=== PATIENT | female | born 1995 | race Caucasian/White ===

== ENCOUNTER 2018-09-04 22:21 | Emergency (ER) | payer BC ==
--- NOTE | 2018-09-04 22:48 | EDM.PDOC ---
ED HPI GENERAL MEDICAL PROBLEM - General Chief Complaint: ENT Problem Stated Complaint: ABCESS Time Seen by Provider: 09/04/18 22:44 - History of Present Illness INITIAL COMMENTS - FREE TEXT/NARRATIVE: HISTORY AND PHYSICAL: History of present illness: Patient's a 22-year-old female who is currently and presents with a concern of dentalgia secondary to dental abscess she has pain and swelling the region of her left upper molar. Review of systems: As per history of present illness and below otherwise all systems reviewed and negative. Past medical history: As per history of present illness and as reviewed below otherwise noncontributory. Surgical history: As per history of present illness and as reviewed below otherwise noncontributory. Social history: No reported history of drug or alcohol abuse. Family history: As per history of present illness and as reviewed below otherwise noncontributory. Physical exam: HEENT: Atraumatic, normocephalic, pupils reactive, negative for conjunctival pallor or scleral icterus, mucous membranes moist, throat clear, neck supple, nontender, trachea midline. Generally poor dentition gingival edema in the left upper molar region. Lungs: Clear to auscultation, breath sounds equal bilaterally, chest nontender. Heart: S1S2, regular, negative for clicks, rubs, or JVD. Abdomen: Soft, nondistended, nontender. Negative for masses or hepatosplenomegaly. Negative for costovertebral tenderness. Pelvis: Stable nontender. Genitourinary: Deferred. Rectal: Deferred. Extremities: Atraumatic, negative for cords or calf pain. Neurovascular unremarkable. Neuro: Awake, alert, oriented. Cranial nerves II through XII unremarkable. Cerebellum unremarkable. Motor and sensory unremarkable throughout. Exam nonfocal. Diagnostics: None Therapeutics: Dental balls Impression: Were 1 dentalgia #2 dental abscess #3 history of Definitive disposition and diagnosis as appropriate pending reevaluation and review of above. dental area Pain Score (Numeric/FACES): 5 - Related Data Allergies Allergy/AdvReac Type Severity Reaction Status Date / Time No Known Allergies Allergy Verified 09/04/18 22:32 Home Meds: Home Meds . [No Known Home Meds] 09/04/18 [History] Past Medical History HEENT History: Reports: None Cardiovascular History: Reports: None Respiratory History: Reports: None Gastrointestinal History: Reports: None Genitourinary History: Reports: None Musculoskeletal History: Reports: None Neurological History: Reports: None Psychiatric History: Reports: None Endocrine/Metabolic History: Reports: None Hematologic History: Reports: None Immunologic History: Reports: None Oncologic (Cancer) History: Reports: None Dermatologic History: Reports: None - Infectious Disease History Infectious Disease History: Reports: None - Past Surgical History Head Surgeries/Procedures: Reports: None Musculoskeletal Surgical History: Reports: None Social & Family History - Family History Family Medical History: Noncontributory - Tobacco Use Smoking Status *Q: Current Every Day Smoker Years of Tobacco use: 9 Packs/Tins Daily: 0.5 - Caffeine Use Caffeine Use: Reports: Soda - Recreational Drug Use Recreational Drug Use: No ED ROS GENERAL - Review of Systems Review Of Systems: ROS reveals no pertinent complaints other than HPI. ED EXAM, GENERAL - Physical Exam Exam: See Below (See dictation) Course - Vital Signs Last Recorded V/S: Last Vital Signs Temp 36.5 C 09/04/18 22:32 Pulse 89 09/04/18 22:32 Resp 18 09/04/18 22:32 BP 112/64 09/04/18 22:32 Pulse Ox 98 09/04/18 22:32 Departure - Departure Time of Disposition: 22:46 Disposition: Home, Self-Care 01 Condition: Good Clinical Impression: Dental abscess, Dentalgia - Discharge Information Referrals: PCP,None [Primary Care Provider] - Additional Instructions: The following information is given to patients seen in the emergency department who are being discharged to home. This information is to outline your options for follow-up care. We provide all patients seen in our emergency department with a follow-up referral. The need for follow-up, as well as the timing and circumstances, are variable depending upon the specifics of your emergency department visit. If you don't have a primary care physician on staff, we will provide you with a referral. We always advise you to contact your personal physician following an emergency department visit to inform them of the circumstance of the visit and for follow-up with them and/or the need for any referrals to a consulting specialist. The emergency department will also refer you to a specialist when appropriate. This referral assures that you have the opportunity for followup care with a specialist. All of these measure are taken in an effort to provide you with optimal care, which includes your followup. Under all circumstances we always encourage you to contact your private physician who remains a resource for coordinating your care. When calling for followup care, please make the office aware that this follow-up is from your recent emergency room visit. If for any reason you are refused follow-up, please contact the [facility] emergency department at and asked to speak to the emergency department charge nurse. Keflex as prescribed Tylenol as directed follow-up dentist as discussed return as needed as discussed
== END 2018-09-04 23:05 | disposition home or self-care (01) ==
LOC: MW.ED 22:21
DX: O99.619 Diseases of the digestive system complicating pregnancy, unspecified trimester (principal); K04.7 Periapical abscess without sinus; O99.330 Smoking (tobacco) complicating pregnancy, unspecified trimester; F17.210 Nicotine dependence, cigarettes, uncomplicated; Z3A.00 Weeks of gestation of pregnancy not specified
CPT/HCPCS: 99282; 99283

== ENCOUNTER 2019-01-11 13:24 | Inpatient (IN) | payer SELFPAY ==
[2019-01-11] MEDS ORDERED: Water For Irrigation,Sterile 1,000 ML Container IRR PRN (19:11)
[2019-01-11] MEDS ORDERED: Ondansetron 4 MG/2 ML SDV IVPUSH PRN (19:11)
[2019-01-11] MEDS ORDERED: Sodium Chloride 0.9% 2.5 ML Syringe FLUSH PRN (19:11)
[2019-01-11] MEDS ORDERED: Tranexamic Acid 1,000 MG in Sodium Chloride 0.9% 100 ML IV PRN (19:11)
[2019-01-11] MEDS ORDERED: Carboprost Tromethamine 250 MCG/1 ML Amp IM PRN (19:11)
[2019-01-11] MEDS ORDERED: Lidocaine 1% 50 ML MDV INJECT PRN (19:11)
[2019-01-11] MEDS ORDERED: Sodium Chloride 0.9% 10 ML SDV IV PRN (19:11)
[2019-01-11] MEDS ORDERED: Butorphanol 1 MG/ML SDV IVPUSH PRN (19:11)
[2019-01-11] MEDS ORDERED: Nalbuphine 10 MG/1 ML Vial IVPUSH PRN (19:11)
[2019-01-11] MEDS ORDERED: Sodium Chloride 0.9% 10 ML Syringe FLUSH PRN (19:11)
[2019-01-11] MEDS ORDERED: Methylergonovine 0.2 MG/1 ML Amp IM PRN (19:11)
[2019-01-11] MEDS ORDERED: Terbutaline 1 MG/ML SDV SUBCUT PRN (19:11)
[2019-01-11] MEDS ORDERED: Misoprostol 200 MCG Tab PO PRN (19:11)
[2019-01-11] MEDS ORDERED: Oxytocin/0.9 % Sodium Chloride 30 UNIT/500 ML BAG IV SCH ×2 (19:15)
[2019-01-11] MEDS: Lactated Ringers 1,000 ML IV SCH (21:00)
--- NOTE | 2019-01-11 21:53 | PCM.LDHP ---
L&D History of Present Illness - General Date of Service: 01/11/19 Admit Problem/Dx: Patient Status Order with Admit Dx/Problem 01/11/19 19:11 Patient Status [ADT] Routine Admission Diagnosis/Problem Admission Diagnosis/Problem 01/11/19 21:46 23yo EDC 01/18/2019 39 0/7wks IOL Term. A+, RI, GBS neg, Hep C pos. Source of Information: Patient History Limitations: Reports: No Limitations - History of Present Illness Improves with: Reports: None Worsens with: Reports: None Associated Symptoms: Reports: N - Related Data Allergies/Adverse Reactions: Allergies Allergy/AdvReac Type Severity Reaction Status Date / Time No Known Allergies Allergy Verified 09/04/18 22:32 Home Medications: Home Meds Pnv No.103/Folic/Om3s/Fish Oil [ Gummies] 1 tab PO DAILY 01/05/19 [ History] Past Medical History HEENT History: Reports: None Cardiovascular History: Reports: None Respiratory History: Reports: None Gastrointestinal History: Reports: None Genitourinary History: Reports: None 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: Musculoskeletal History: Reports: None Neurological History: Reports: None Psychiatric History: Reports: None Endocrine/Metabolic History: Reports: None Hematologic History: Reports: None Immunologic History: Reports: None Oncologic (Cancer) History: Reports: None Dermatologic History: Reports: None - Infectious Disease History Infectious Disease History: Reports: Hepatitis C - Past Surgical History Head Surgeries/Procedures: Reports: None Musculoskeletal Surgical History: Reports: None Social & Family History - Family History Family Medical History: Noncontributory - Caffeine Use Caffeine Use: Reports: Soda H&P Review of Systems - Review of Systems: Review Of Systems: See Below General: Reports: No Symptoms HEENT: Reports: No Symptoms Pulmonary: Reports: No Symptoms Cardiovascular: Reports: No Symptoms Gastrointestinal: Reports: No Symptoms Genitourinary: Reports: No Symptoms Musculoskeletal: Reports: No Symptoms Skin: Reports: No Symptoms Psychiatric: Reports: No Symptoms Neurological: Reports: No Symptoms Hematologic/Lymphatic: Reports: No Symptoms Immunologic: Reports: No Symptoms L&D Exam - Exam Exam: See Below - Vital Signs Weight: 66.224 kg - OB Specific Contraction Intensity: Mild to Moderate Movement: Active Heart Tones: Present Heart Rate (FHR) Variability: Moderate (6-25 bmp) Presentation: Vertex - Fraga Score Fraga Score Cervix Position: Midposition Fraga Score Consistency: Soft Fraga Score Effacement: 51-70% Fraga Score Dilation: 3-4 cm Fraga Score Infant's Station: -2 Fraga Score Total: 8 - Exam General: Alert, Oriented, Cooperative HEENT: Hearing Intact Lungs: Clear to Auscultation, Normal Respiratory Effort Cardiovascular: Regular Rate, Regular Rhythm, Normal S1, Normal S2 GI/Abdominal Exam: Soft, Non-Tender, Pelvis Stable Rectal Exam: Deferred Genitourinary: Normal external exam, Normal bimanual exam, Cervical dilitation. No: Cervical fluid, Vaginal bleeding Back Exam: Normal Inspection, Full Range of Motion Extremities: Normal Inspection, Normal Range of Motion, Non-Tender, No Pedal Edema Skin: Warm, Dry, Intact Neurological: Cranial Nerves Intact, Strength Equal Bilateral, Normal Gait, Normal Speech, Normal Tone Psychiatric: Alert, Normal Affect, Normal Mood - Patient Data Lab Results Last 24 hrs: Laboratory Results - last 24 hr 01/11/19 01/11/19 Range/Units 19:34 19:34 WBC 8.79 (4.0-11.0) K/uL RBC 3.81 L (4.30-5.90) M/uL Hgb 9.9 L (12.0-16.0) g/dL Hct 30.4 L (36.0-46.0) % MCV 79.8 L (80.0-98.0) fL MCH 26.0 L (27.0-32.0) pg MCHC 32.6 (31.0-37.0) g/dL RDW Std Deviation 42.6 (28.0-62.0) fl RDW Coeff of Garland 15 (11.0-15.0) % Plt Count 159 (150-400) K/uL MPV 9.40 (7.40-12.00) fL Nucleated RBC % 0.0 /100WBC Nucleated RBCs # 0 K/uL Blood Type A POSITIVE Antibody Screen NEGATIVE Result Diagrams: 01/11/19 19:34 - Problem List (1) Supervision of normal IUP (intrauterine ) in multigravida SNOMED Code(s): 735777053, 128942778, 834379223 ICD Code: Z34.80 - ENCOUNTER FOR SUPRVSN OF NORMAL , UNSP TRIMESTER Status: Acute Priority: High Current Visit: Yes Qualifiers: Trimester: third trimester Qualified Code(s): Z34.83 - Encounter for supervision of other normal , third trimester (2) Hepatitis C infection SNOMED Code(s): 53375886 ICD Code: B19.20 - UNSPECIFIED VIRAL HEPATITIS C WITHOUT HEPATIC COMA Status: Acute Priority: High Current Visit: Yes Qualifiers: Viral hepatitis chronicity: chronic Problem List Initiated/Reviewed/Updated: Yes Orders Last 24hrs: Active Orders 24 hr Category Date Time Status Patient Status [ADT] Routine ADT 01/11/19 19:11 Active Communication Order [RC] ASDIRECTED Care 01/11/19 19:11 Active Communication Order [RC] ASDIRECTED Care 01/11/19 19:11 Active May Shower [RC] ASDIRECTED Care 01/11/19 19:11 Active Notify Provider [RC] PRN Care 01/11/19 19:11 Active Notify Provider [RC] PRN Care 01/11/19 19:11 Active Notify Provider [RC] STAT Care 01/11/19 19:11 Active Oxygen Therapy [RC] ASDIRECTED Care 01/11/19 19:11 Active Up ad Alise [RC] ASDIRECTED Care 01/11/19 19:11 Active Vital Signs [RC] PER UNIT ROUTINE Care 01/11/19 19:11 Active Regular Diet [DIET] Diet 01/11/19 Breakfast Active RAPID PLASMA REAGIN, QUANT [REF] Routine Lab 01/11/19 19:34 Received Butorphanol [Stadol] Med 01/11/19 19:11 Active 1 mg IVPUSH Q1H PRN Carboprost Tromethamine [Hemabate DS] Med 01/11/19 19:11 Active 250 mcg IM ASDIRECTED PRN Lactated Ringers [Ringers, Lactated] 1,000 ml Med 01/11/19 19:15 Active IV ASDIRECTED Lidocaine 1% [Xylocaine 1%] Med 01/11/19 19:11 Active 50 ml INJECT ONETIME PRN Methylergonovine [Methergine] Med 01/11/19 19:11 Active 0.2 mg IM ASDIRECTED PRN Nalbuphine [Nubain] Med 01/11/19 19:11 Active 10 mg IVPUSH Q1H PRN Ondansetron [Zofran] Med 01/11/19 19:11 Active 4 mg IVPUSH Q4H PRN Oxytocin/0.9 % Sodium Chloride [Oxytocin 30 Unit/500 ML Med 01/11/19 19:15 Active -NS] 30 unit in 500 ml IV TITRATE Oxytocin/0.9 % Sodium Chloride [Oxytocin 30 Unit/500 ML Med 01/11/19 19:15 Active -NS] 30 unit in 500 ml IV TITRATE Sodium Chloride 0.9% [Normal Saline] Med 01/11/19 19:11 Active 10 ml IV ASDIRECTED PRN Sodium Chloride 0.9% [Saline Flush] Med 01/11/19 19:11 Active 10 ml FLUSH ASDIRECTED PRN Sodium Chloride 0.9% [Saline Flush] Med 01/11/19 19:11 Active 2.5 ml FLUSH ASDIRECTED PRN Terbutaline [Brethine] Med 01/11/19 19:11 Active 0.25 mg SUBCUT ASDIRECTED PRN Tranexamic Acid [Cyklokapron] 1,000 mg Med 01/11/19 19:11 Active Sodium Chloride 0.9% [Normal Saline] 100 ml IV ONETIME Water For Irrigation,Sterile [Sterile Water for Med 01/11/19 19:11 Active Irrigation] 1,000 ml IRR ASDIRECTED PRN miSOPROStoL [Cytotec] Med 01/11/19 19:11 Active 200 mcg PO ONETIME PRN Scalp Electrode [WOMSER] Per Unit Routine Oth 01/11/19 19:11 Ordered Medication Administration Instruction [OM.PC] Q3H Oth 01/11/19 19:15 Ordered Peripheral IV Insertion Adult [OM.PC] Routine Oth 01/11/19 19:11 Ordered Resuscitation Status Routine Resus Stat 01/11/19 19:11 Ordered Medication Orders Butorphanol Tartrate (Stadol) 1 mg IVPUSH Q1H PRN PRN Reason: Pain Carboprost Tromethamine (Hemabate Ds) 250 mcg IM ASDIRECTED PRN PRN Reason: Post Hemorrhage Lactated Ringer's (Ringers, Lactated) 1,000 mls @ 150 mls/hr IV ASDIRECTED RAYMOND Last Admin: 01/11/19 21:00 Dose: 150 mls/hr Oxytocin/Sodium Chloride (Oxytocin 30 Unit/500 Ml-Ns) 30 unit in 500 mls @ 500 mls/hr IV TITRATE RAYMOND Oxytocin/Sodium Chloride (Oxytocin 30 Unit/500 Ml-Ns) 30 unit in 500 mls @ 2 mls/hr IV TITRATE RAYMOND; Protocol Last Admin: 01/11/19 21:00 Dose: 2 munits/min, 2 mls/hr Tranexamic Acid 1,000 mg/ (Sodium Chloride) 110 mls @ 660 mls/hr IV ONETIME PRN PRN Reason: Bleeding Lidocaine HCl (Xylocaine 1%) 50 ml INJECT ONETIME PRN PRN Reason: Laceration repair Methylergonovine Maleate (Methergine) 0.2 mg IM ASDIRECTED PRN PRN Reason: Post Hemorrhage Misoprostol (Cytotec) 200 mcg PO ONETIME PRN PRN Reason: Post Hemorrhage Nalbuphine HCl (Nubain) 10 mg IVPUSH Q1H PRN PRN Reason: Pain (severe 7-10) Ondansetron HCl (Zofran) 4 mg IVPUSH Q4H PRN PRN Reason: Nausea/Vomiting Sodium Chloride (Saline Flush) 10 ml FLUSH ASDIRECTED PRN PRN Reason: Keep Vein Open Sodium Chloride (Saline Flush) 2.5 ml FLUSH ASDIRECTED PRN PRN Reason: Keep Vein Open Sodium Chloride (Normal Saline) 10 ml IV ASDIRECTED PRN PRN Reason: IV Use Sterile Water (Sterile Water For Irrigation) 1,000 ml IRR ASDIRECTED PRN PRN Reason: delivery Terbutaline Sulfate (Brethine) 0.25 mg SUBCUT ASDIRECTED PRN PRN Reason: Tacysystole Assessment/Plan Comment:: IOL A: 23yo EDC 01/18/2019 39 0/7wks IOL Term. A+, RI, GBS neg, Hep C pos. P: Admit, epidural prn, anticipate , Dr Aleman updated.
[2019-01-12] MEDS: Lactated Ringers 1,000 ML IV SCH ×2 (04:53→07:45)
[2019-01-12] MEDS ORDERED: fentaNYL 100 MCG/2 ML SDV ONE (06:22)
[2019-01-12] MEDS ORDERED: Ropivacaine HCl/PF 100 ML ONE (06:22)
--- NOTE | 2019-01-12 06:47 | PCM.PREANE ---
Preanesthetic Assessment - Anesthesia/Transfusion/Family Hx Anesthesia History: Prior Anesthesia Without Reaction Family History of Anesthesia Reaction: No Transfusion History: No Prior Transfusion(s) - Review of Systems General: No Symptoms Pulmonary: No Symptoms Cardiovascular: No Symptoms Gastrointestinal: No Symptoms Neurological: No Symptoms Other: Reports: None - Physical Assessment NPO Status Date: 01/12/19 NPO Status Time: 00:05 Height: 1.6 m Weight: 66.224 kg ASA Class: 1 - Lab Values: Laboratory Last Values WBC 8.79 K/uL (4.0-11.0) 01/11/19 19:34 RBC 3.81 M/uL (4.30-5.90) L 01/11/19 19:34 Hgb 9.9 g/dL (12.0-16.0) L 01/11/19 19:34 Hct 30.4 % (36.0-46.0) L 01/11/19 19:34 MCV 79.8 fL (80.0-98.0) L 01/11/19 19:34 MCH 26.0 pg (27.0-32.0) L 01/11/19 19:34 MCHC 32.6 g/dL (31.0-37.0) 01/11/19 19:34 RDW Std Deviation 42.6 fl (28.0-62.0) 01/11/19 19:34 RDW Coeff of Garland 15 % (11.0-15.0) 01/11/19 19:34 Plt Count 159 K/uL (150-400) 01/11/19 19:34 MPV 9.40 fL (7.40-12.00) 01/11/19 19:34 Nucleated RBC % 0.0 /100WBC 01/11/19 19:34 Nucleated RBCs # 0 K/uL 01/11/19 19:34 Blood Type A POSITIVE 01/11/19 19:34 Antibody Screen NEGATIVE 01/11/19 19:34 - Allergies Allergies/Adverse Reactions: Allergies Allergy/AdvReac Type Severity Reaction Status Date / Time No Known Allergies Allergy Verified 09/04/18 22:32 - Acknowledgements Anesthesia Type Planned: Epidural, Regional Block Pt an Appropriate Candidate for the Planned Anesthesia: Yes Alternatives and Risks of Anesthesia Discussed w Pt/Guardian: Yes Pt/Guardian Understands and Agrees with Anesthesia Plan: Yes PreAnesthesia Questionnaire HEENT History: Reports: None Cardiovascular History: Reports: None Respiratory History: Reports: None Gastrointestinal History: Reports: None Genitourinary History: Reports: None 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: Musculoskeletal History: Reports: None Neurological History: Reports: None Psychiatric History: Reports: None Endocrine/Metabolic History: Reports: None Hematologic History: Reports: None Immunologic History: Reports: None Oncologic (Cancer) History: Reports: None Dermatologic History: Reports: None - Infectious Disease History Infectious Disease History: Reports: Hepatitis C - Past Surgical History Head Surgeries/Procedures: Reports: None Musculoskeletal Surgical History: Reports: None - SUBSTANCE USE Smoking Status *Q: Current Every Day Smoker Tobacco Use Within Last Twelve Months: Cigarettes Second Hand Smoke Exposure: Yes Recreational Drug Use History: Yes - HOME MEDS Home Medications: Home Meds Pnv No.103/Folic/Om3s/Fish Oil [ Gummies] 1 tab PO DAILY 01/05/19 [ History] - CURRENT (IN HOUSE) MEDS Current Meds: Current Medications Butorphanol Tartrate (Stadol) 1 mg IVPUSH Q1H PRN PRN Reason: Pain Carboprost Tromethamine (Hemabate Ds) 250 mcg IM ASDIRECTED PRN PRN Reason: Post Hemorrhage Lactated Ringer's (Ringers, Lactated) 1,000 mls @ 150 mls/hr IV ASDIRECTED RAYMOND Last Admin: 01/12/19 04:53 Dose: 150 mls/hr Oxytocin/Sodium Chloride (Oxytocin 30 Unit/500 Ml-Ns) 30 unit in 500 mls @ 500 mls/hr IV TITRATE RAYMOND Oxytocin/Sodium Chloride (Oxytocin 30 Unit/500 Ml-Ns) 30 unit in 500 mls @ 2 mls/hr IV TITRATE RAYMOND; Protocol Last Titration: 01/11/19 23:00 Dose: 10 munits/min, 10 mls/hr Tranexamic Acid 1,000 mg/ (Sodium Chloride) 110 mls @ 660 mls/hr IV ONETIME PRN PRN Reason: Bleeding Lidocaine HCl (Xylocaine 1%) 50 ml INJECT ONETIME PRN PRN Reason: Laceration repair Methylergonovine Maleate (Methergine) 0.2 mg IM ASDIRECTED PRN PRN Reason: Post Hemorrhage Misoprostol (Cytotec) 200 mcg PO ONETIME PRN PRN Reason: Post Hemorrhage Nalbuphine HCl (Nubain) 10 mg IVPUSH Q1H PRN PRN Reason: Pain (severe 7-10) Ondansetron HCl (Zofran) 4 mg IVPUSH Q4H PRN PRN Reason: Nausea/Vomiting Sodium Chloride (Saline Flush) 10 ml FLUSH ASDIRECTED PRN PRN Reason: Keep Vein Open Sodium Chloride (Saline Flush) 2.5 ml FLUSH ASDIRECTED PRN PRN Reason: Keep Vein Open Sodium Chloride (Normal Saline) 10 ml IV ASDIRECTED PRN PRN Reason: IV Use Sterile Water (Sterile Water For Irrigation) 1,000 ml IRR ASDIRECTED PRN PRN Reason: delivery Terbutaline Sulfate (Brethine) 0.25 mg SUBCUT ASDIRECTED PRN PRN Reason: Tacysystole Discontinued Medications Fentanyl (Sublimaze) Confirm Administered Dose 100 mcg .ROUTE .STK-MED ONE Stop: 01/12/19 06:23 Ropivacaine (Naropin 0.2%) Confirm Administered Dose 100 mls @ as directed .ROUTE .STK-MED ONE Stop: 01/12/19 06:23
--- NOTE | 2019-01-12 06:50 | PCM.PRNOTE ---
- Free Text/Narrative Note: Anes Note Patient requests epidural for L&D. Sitting position, level L2-L3 midline approach. Sterile technique. Chloraprep scrub to lumbar area. Sterile fenestrated drape applied. Epidural space easily achived single attempt with ease using ROGELIO technique. ROGELIO at 3 cm. Cath threaded 5 cm with ease. Secured at skin at 9 cm. Cath secured with sterile clear adhesive dressing. 0635 test 3 cc 1.5% lido with epi negative 0638 Load 10 cc 0.2% ropivicaine with 1 mcg cc fentanyl given in slow divided doses. 0643 Pump started with 90 cc same solution. Rate is 8 cc hr, 6 cc q 20 min prn bolus. Matilde well. Time with patient [id number] Nik Fuentes CRNA
--- NOTE | 2019-01-12 13:41 | PCM.DEL ---
L & D Note - General Info Date of Service: 01/12/19 Mother's Due Date: 01/18/19 - Delivery Note Labor: Induced by Oxytocin Delivery Outcome: Livebirth Infant Delivery Method: Spontaneous Vaginal Delivery-Single Delivery Mode: Spontaneous Presentation: Vertex Nuchal Cord: Present Anesthesia Type: Epidural Amniotic Fluid Description: Clear Episiotomy Type: None Laceration: None Placenta: Intact, Spontaneous Cord: 3 Vessels Estimated Blood Loss: 100 Resuscitation Needed: No Platinum: Stimulated Score 1 min: 8 Score 5 min: 9 Second Stage Interventions: Reports: Pushing, Pulls Own Legs Back Induction Criteria - Fraga Score Fraga Score Dilation: 3-4 cm Fraga Score Effacement: 60-70% Fraga Score 's Station: -2 Fraga Score Consistency: Medium Fraga Score Cervix Position: Midposition Fraga Score Total: 7 Fraga Score Presenting Part: Reports: Cephalic - Induction Gestational Age >/= 39 wks: Yes Estimated Pelvis: Reports: Adequate Reassuring Monitoring Strip: Yes Absence of Tachy Systole: Yes - General Info Date of Service: 01/12/19 Functional Status: Reports: Pain Controlled - Review of Systems General: Reports: No Symptoms HEENT: Reports: No Symptoms Pulmonary: Reports: No Symptoms Cardiovascular: Reports: No Symptoms Gastrointestinal: Reports: No Symptoms Genitourinary: Reports: No Symptoms Musculoskeletal: Reports: No Symptoms Skin: Reports: No Symptoms Neurological: Reports: No Symptoms Psychiatric: Reports: No Symptoms - Patient Data Weight - Most Recent: 66.224 kg Lab Results Last 24 Hours: Laboratory Results - last 24 hr 01/11/19 01/11/19 Range/Units 19:34 19:34 WBC 8.79 (4.0-11.0) K/uL RBC 3.81 L (4.30-5.90) M/uL Hgb 9.9 L (12.0-16.0) g/dL Hct 30.4 L (36.0-46.0) % MCV 79.8 L (80.0-98.0) fL MCH 26.0 L (27.0-32.0) pg MCHC 32.6 (31.0-37.0) g/dL RDW Std Deviation 42.6 (28.0-62.0) fl RDW Coeff of Garland 15 (11.0-15.0) % Plt Count 159 (150-400) K/uL MPV 9.40 (7.40-12.00) fL Nucleated RBC % 0.0 /100WBC Nucleated RBCs # 0 K/uL Blood Type A POSITIVE Antibody Screen NEGATIVE Med Orders - Current: Current Medications Butorphanol Tartrate (Stadol) 1 mg IVPUSH Q1H PRN PRN Reason: Pain Carboprost Tromethamine (Hemabate Ds) 250 mcg IM ASDIRECTED PRN PRN Reason: Post Hemorrhage Lactated Ringer's (Ringers, Lactated) 1,000 mls @ 150 mls/hr IV ASDIRECTED RAYMOND Last Admin: 01/12/19 07:45 Dose: 150 mls/hr Oxytocin/Sodium Chloride (Oxytocin 30 Unit/500 Ml-Ns) 30 unit in 500 mls @ 500 mls/hr IV TITRATE RAYMOND Oxytocin/Sodium Chloride (Oxytocin 30 Unit/500 Ml-Ns) 30 unit in 500 mls @ 2 mls/hr IV TITRATE RAYMOND; Protocol Last Titration: 01/12/19 13:00 Dose: 0 munits/min, 0 mls/hr Tranexamic Acid 1,000 mg/ (Sodium Chloride) 110 mls @ 660 mls/hr IV ONETIME PRN PRN Reason: Bleeding Lidocaine HCl (Xylocaine 1%) 50 ml INJECT ONETIME PRN PRN Reason: Laceration repair Methylergonovine Maleate (Methergine) 0.2 mg IM ASDIRECTED PRN PRN Reason: Post Hemorrhage Misoprostol (Cytotec) 200 mcg PO ONETIME PRN PRN Reason: Post Hemorrhage Nalbuphine HCl (Nubain) 10 mg IVPUSH Q1H PRN PRN Reason: Pain (severe 7-10) Ondansetron HCl (Zofran) 4 mg IVPUSH Q4H PRN PRN Reason: Nausea/Vomiting Sodium Chloride (Saline Flush) 10 ml FLUSH ASDIRECTED PRN PRN Reason: Keep Vein Open Sodium Chloride (Saline Flush) 2.5 ml FLUSH ASDIRECTED PRN PRN Reason: Keep Vein Open Sodium Chloride (Normal Saline) 10 ml IV ASDIRECTED PRN PRN Reason: IV Use Sterile Water (Sterile Water For Irrigation) 1,000 ml IRR ASDIRECTED PRN PRN Reason: delivery Terbutaline Sulfate (Brethine) 0.25 mg SUBCUT ASDIRECTED PRN PRN Reason: Tacysystole Discontinued Medications Fentanyl (Sublimaze) Confirm Administered Dose 100 mcg .ROUTE .STK-MED ONE Stop: 01/12/19 06:23 Ropivacaine (Naropin 0.2%) Confirm Administered Dose 100 mls @ as directed .ROUTE .STK-MED ONE Stop: 01/12/19 06:23 - Exam General: Alert, Oriented, Cooperative, No Acute Distress Lungs: Normal Respiratory Effort GI/Abdominal Exam: Soft, Non-Tender, Pelvis Stable (Female) Exam: Normal External Exam, Normal Bimanual Exam, Vaginal Bleeding. No: Vaginal Lesions, Vaginal Tears Back Exam: Normal Inspection, Full Range of Motion Extremities: Normal Inspection, Normal Range of Motion, Non-Tender, No Pedal Edema Skin: Warm, Dry, Intact Wound/Incisions: Healing Well Neurological: No New Focal Deficit, Normal Speech, Normal Tone, Strength Equal Bilateral Psy/Mental Status: Alert, Normal Affect, Normal Mood - Problem List & Annotations (1) Supervision of normal IUP (intrauterine ) in multigravida SNOMED Code(s): 027291233, 649153767, 867713285 Code(s): Z34.80 - ENCOUNTER FOR SUPRVSN OF NORMAL , UNSP TRIMESTER Status: Acute Priority: High Current Visit: Yes Qualifiers: Trimester: third trimester Qualified Code(s): Z34.83 - Encounter for supervision of other normal , third trimester (2) Hepatitis C infection SNOMED Code(s): 96051058 Code(s): B19.20 - UNSPECIFIED VIRAL HEPATITIS C WITHOUT HEPATIC COMA Status : Acute Priority: High Current Visit: Yes Qualifiers: Viral hepatitis chronicity: chronic - Problem List Review Problem List Initiated/Reviewed/Updated: Yes - My Orders Last 24 Hours: My Active Orders 01/11/19 19:11 Patient Status [ADT] Routine Communication Order [RC] ASDIRECTED May Shower [RC] ASDIRECTED Notify Provider [RC] PRN Oxygen Therapy [RC] ASDIRECTED Up ad Alise [RC] ASDIRECTED Vital Signs [RC] PER UNIT ROUTINE Butorphanol [Stadol] 1 mg IVPUSH Q1H PRN Carboprost Tromethamine [Hemabate DS] 250 mcg IM ASDIRECTED PRN Lidocaine 1% [Xylocaine 1%] 50 ml INJECT ONETIME PRN Methylergonovine [Methergine] 0.2 mg IM ASDIRECTED PRN Nalbuphine [Nubain] 10 mg IVPUSH Q1H PRN Ondansetron [Zofran] 4 mg IVPUSH Q4H PRN Sodium Chloride 0.9% [Normal Saline] 10 ml IV ASDIRECTED PRN Sodium Chloride 0.9% [Saline Flush] 10 ml FLUSH ASDIRECTED PRN Sodium Chloride 0.9% [Saline Flush] 2.5 ml FLUSH ASDIRECTED PRN Terbutaline [Brethine] 0.25 mg SUBCUT ASDIRECTED PRN Tranexamic Acid [Cyklokapron] 1,000 mg Sodium Chloride 0.9% [Normal Saline] 100 ml IV ONETIME Water For Irrigation,Sterile [Sterile Water for Irrigation] 1,000 ml IRR ASDIRECTED PRN miSOPROStoL [Cytotec] 200 mcg PO ONETIME PRN Scalp Electrode [WOMSER] Per Unit Routine Peripheral IV Insertion Adult [OM.PC] Routine Resuscitation Status Routine 01/11/19 19:15 Lactated Ringers [Ringers, Lactated] 1,000 ml IV ASDIRECTED Oxytocin/0.9 % Sodium Chloride [Oxytocin 30 Unit/500 ML-NS] 30 unit in 500 ml IV TITRATE Oxytocin/0.9 % Sodium Chloride [Oxytocin 30 Unit/500 ML-NS] 30 unit in 500 ml IV TITRATE Medication Administration Instruction [OM.PC] Q3H 01/11/19 19:34 RAPID PLASMA REAGIN, QUANT [REF] Routine - Plan Plan:: IOL A: 23yo EDC 01/18/2019 39 0/7wks IOL Term. A+, RI, GBS neg, Hep C pos. P: Admit, epidural prn, anticipate , Dr Aleman updated. Delivery A: of viable female. APGARS 8/9, Wt: 7lb 4oz. Intact perineum, EBL 100cc. Mother and baby stable P: Routine pp plan of care
[2019-01-12] MEDS ORDERED: Lanolin 100% Cream 7 GM Tube TOP PRN (13:42)
[2019-01-12] MEDS ORDERED: Benzocaine/Menthol 20%-0.5% Spray 78 GM Cannister TOP PRN (13:42)
[2019-01-12] MEDS ORDERED: Ibuprofen 800 MG Tab PO PRN (13:42)
[2019-01-12] MEDS ORDERED: oxyCODONE 5 MG Tab PO PRN (13:42)
[2019-01-12] MEDS ORDERED: Witch Hazel Medicated Pads 40/Jar TOP PRN (13:42)
[2019-01-12] MEDS ORDERED: Ibuprofen 400 MG Tab PO PRN (13:42)
[2019-01-12] MEDS ORDERED: Bisacodyl 10 MG Supp RECTAL PRN (13:42)
[2019-01-12] MEDS ORDERED: Acetaminophen 500 MG Tab PO PRN ×2 (13:42)
[2019-01-12] MEDS ORDERED: Docusate Sodium 100 MG Cap PO PRN (13:42)
--- NOTE | 2019-01-13 07:16 | PCM.POSTAN ---
POST ANESTHESIA ASSESSMENT - MENTAL STATUS Mental Status: Alert - VITAL SIGNS Vital Signs: Last Vital Signs Temp 36.4 C 01/13/19 04:29 Pulse 68 01/13/19 04:29 Resp 18 01/13/19 04:29 BP 129/78 01/13/19 04:29 Pulse Ox 97 01/13/19 04:29 - RESPIRATORY Respiratory Status: Respiratory Rate WNL - CARDIOVASCULAR CV Status: Pulse Rate WNL - GASTROINTESTINAL GI Status: No Symptoms - POST OP HYDRATION Hydration Status: Adequate & Stable
--- NOTE | 2019-01-13 07:16 | PCM48HPAN ---
Post Anesthesia Note - EVALUATION WITHIN 48HRS OF ANESTHETIC Vital Signs in Normal Range: Yes Patient Participated in Evaluation: Yes Respiratory Function Stable: Yes Airway Patent: Yes Cardiovascular Function Stable: Yes Hydration Status Stable: Yes Pain Control Satisfactory: Yes Nausea and Vomiting Control Satisfactory: Yes Mental Status Recovered: Yes Vital Signs: Last Vital Signs Temp 36.4 C 01/13/19 04:29 Pulse 68 01/13/19 04:29 Resp 18 01/13/19 04:29 BP 129/78 01/13/19 04:29 Pulse Ox 97 01/13/19 04:29
--- NOTE | 2019-01-13 09:10 | PCM.DCSUM1 ---
Discharge Summary - Hospital Course Free Text/Narrative:: Discharge home with . Follow up in 6 weeks for . Diagnosis: Stroke: No Modified Em Scale: No Symptoms at All Modified Carpenter Scale Score: 0 - Discharge Data Discharge Date: 01/13/19 Discharge Disposition: Home, Self-Care 01 Condition: Good - Referral to Home Health Primary Care Physician: Betsey Iglesias CNM - Discharge Diagnosis/Problem(s) (1) Supervision of normal IUP (intrauterine ) in multigravida SNOMED Code(s): 579518273, 901275125, 598822621 ICD Code: Z34.80 - ENCOUNTER FOR SUPRVSN OF NORMAL , UNSP TRIMESTER Status: Acute Priority: High Current Visit: Yes Qualifiers: Trimester: third trimester Qualified Code(s): Z34.83 - Encounter for supervision of other normal , third trimester (2) Hepatitis C infection SNOMED Code(s): 55571074 ICD Code: B19.20 - UNSPECIFIED VIRAL HEPATITIS C WITHOUT HEPATIC COMA Status: Acute Priority: High Current Visit: Yes Qualifiers: Viral hepatitis chronicity: chronic (3) (normal spontaneous vaginal delivery) SNOMED Code(s): 56775821, 844018149 ICD Code: O80 - ENCOUNTER FOR FULL-TERM UNCOMPLICATED DELIVERY Status: Acute Priority: High Current Visit: Yes - Patient Instructions Diet: Usual Diet as Tolerated Activity: As Tolerated, No Strenuous Activities, Rest and Relax Today Driving: May Drive Today Showering/Bathing: May Shower Notify Provider of: Fever, Increased Pain, Swelling and Redness, Nausea and/or Vomiting - Discharge Plan *PRESCRIPTION DRUG MONITORING PROGRAM REVIEWED*: Not Applicable *COPY OF PRESCRIPTION DRUG MONITORING REPORT IN PATIENT TORRIE: Not Applicable Home Medications: Home Meds Pnv No.103/Folic/Om3s/Fish Oil [ Gummies] 1 tab PO DAILY 01/05/19 [ History] Oxygen Therapy Mode: Room Air Patient Handouts: Vaginal Delivery, Care After - Discharge Summary/Plan Comment DC Time >30 min.: Yes - General Info Date of Service: 01/13/19 Admission Dx/Problem (Free Text: Patient Status Order with Admit Dx/Problem 01/11/19 19:11 Patient Status [ADT] Routine Admission Diagnosis/Problem Admission Diagnosis/Problem 01/11/19 21:46 23yo EDC 01/18/2019 39 0/7wks IOL Term. A+, RI, GBS neg, Hep C pos. Functional Status: Reports: Pain Controlled, Tolerating Diet, Ambulating, Urinating - Review of Systems General: Reports: No Symptoms HEENT: Reports: No Symptoms Pulmonary: Reports: No Symptoms Cardiovascular: Reports: No Symptoms Gastrointestinal: Reports: No Symptoms Genitourinary: Reports: No Symptoms Musculoskeletal: Reports: No Symptoms Skin: Reports: No Symptoms Neurological: Reports: No Symptoms Psychiatric: Reports: No Symptoms - Patient Data Vitals - Most Recent: Last Vital Signs Temp 36.4 C 01/13/19 04:29 Pulse 78 01/13/19 08:00 Resp 14 01/13/19 08:00 BP 109/60 01/13/19 08:00 Pulse Ox 97 01/13/19 08:00 Weight - Most Recent: 66.224 kg Med Orders - Current: Current Medications Acetaminophen (Tylenol Extra Strength) 500 mg PO Q4H PRN PRN Reason: Pain Acetaminophen (Tylenol Extra Strength) 1,000 mg PO Q4H PRN PRN Reason: Pain Benzocaine/Menthol (Dermoplast Pain Relief 20%-0.5% Saline) 78 gm TOP ASDIRECTED PRN PRN Reason: Perineal Comfort Measure Bisacodyl (Dulcolax) 10 mg RECTAL ONETIME PRN PRN Reason: Constipation Docusate Sodium (Colace) 100 mg PO BID PRN PRN Reason: Constipation Emollient Ointment (Lansinoh Hpa) 0 gm TOP ASDIRECTED PRN PRN Reason: Sore Nipples Last Admin: 01/12/19 19:55 Dose: 1 applic Oxytocin/Sodium Chloride (Oxytocin 30 Unit/500 Ml-Ns) 30 unit in 500 mls @ 2 mls/hr IV TITRATE RAYMOND; Protocol Last Titration: 01/12/19 13:00 Dose: 0 munits/min, 0 mls/hr Ibuprofen (Motrin) 400 mg PO Q4H PRN PRN Reason: Pain Ibuprofen (Motrin) 800 mg PO Q6H PRN PRN Reason: Pain Last Admin: 01/12/19 19:53 Dose: 800 mg Oxycodone HCl (Oxycodone) 5 mg PO Q2H PRN PRN Reason: Pain Sodium Chloride (Saline Flush) 10 ml FLUSH ASDIRECTED PRN PRN Reason: Keep Vein Open Sodium Chloride (Saline Flush) 2.5 ml FLUSH ASDIRECTED PRN PRN Reason: Keep Vein Open Sodium Chloride (Normal Saline) 10 ml IV ASDIRECTED PRN PRN Reason: IV Use Terbutaline Sulfate (Brethine) 0.25 mg SUBCUT ASDIRECTED PRN PRN Reason: Tacysystole Witch Emeli (Tucks) 1 pad TOP ASDIRECTED PRN PRN Reason: comfort care Discontinued Medications Butorphanol Tartrate (Stadol) 1 mg IVPUSH Q1H PRN PRN Reason: Pain Carboprost Tromethamine (Hemabate Ds) 250 mcg IM ASDIRECTED PRN PRN Reason: Post Hemorrhage Fentanyl (Sublimaze) Confirm Administered Dose 100 mcg .ROUTE .[id number] ONE Stop: 01/12/19 06:23 Last Admin: 01/13/19 07:10 Dose: Not Given Lactated Ringer's (Ringers, Lactated) 1,000 mls @ 150 mls/hr IV ASDIRECTED RAYMOND Last Admin: 01/12/19 07:45 Dose: 150 mls/hr Oxytocin/Sodium Chloride (Oxytocin 30 Unit/500 Ml-Ns) 30 unit in 500 mls @ 500 mls/hr IV TITRATE RAYMOND Tranexamic Acid 1,000 mg/ (Sodium Chloride) 110 mls @ 660 mls/hr IV ONETIME PRN PRN Reason: Bleeding Ropivacaine (Naropin 0.2%) Confirm Administered Dose 100 mls @ as directed .ROUTE .[id number] ONE Stop: 01/12/19 06:23 Last Admin: 01/13/19 07:10 Dose: Not Given Lidocaine HCl (Xylocaine 1%) 50 ml INJECT ONETIME PRN PRN Reason: Laceration repair Methylergonovine Maleate (Methergine) 0.2 mg IM ASDIRECTED PRN PRN Reason: Post Hemorrhage Misoprostol (Cytotec) 200 mcg PO ONETIME PRN PRN Reason: Post Hemorrhage Nalbuphine HCl (Nubain) 10 mg IVPUSH Q1H PRN PRN Reason: Pain (severe 7-10) Ondansetron HCl (Zofran) 4 mg IVPUSH Q4H PRN PRN Reason: Nausea/Vomiting Sterile Water (Sterile Water For Irrigation) 1,000 ml IRR ASDIRECTED PRN PRN Reason: delivery - Exam General: Reports: Alert, Oriented, Cooperative, No Acute Distress Lungs: Reports: Normal Respiratory Effort GI/Abdominal Exam: Soft, Non-Tender (Female) Exam: Deferred, Vaginal Bleeding. No: Vaginal Lesions, Vaginal Tears Rectal (Female) Exam: Deferred Back Exam: Reports: Normal Inspection, Full Range of Motion Extremities: Normal Inspection, Normal Range of Motion, Non-Tender, No Pedal Edema Skin: Reports: Warm, Dry, Intact Neurological: Reports: No New Focal Deficit, Normal Speech, Normal Tone, Strength Equal Bilateral Psy/Mental Status: Reports: Alert, Normal Affect, Normal Mood
== END 2019-01-13 16:40 | disposition home or self-care (01) | DRG 807 ==
LOC: MW.OB 13:24 → UNDOADMOB 18:54 → MW.OB 18:54 → OBSVTOIN 01-12 13:24 → MW.OB 01-12 15:43
PROVIDERS: ADMIT Obstetrics & Gynecology; ATTEND Obstetrics & Gynecology
PROC: 10E0XZZ Delivery of Products of Conception, External Approach (ICD-10-PCS; principal; 2019-01-12)
PROC: 3E033VJ Introduction of Other Hormone into Peripheral Vein, Percutaneous Approach (ICD-10-PCS; 2019-01-12)
PROC: 3E0R3BZ Introduction of Anesthetic Agent into Spinal Canal, Percutaneous Approach (ICD-10-PCS; 2019-01-12)
PROC: 00HU33Z Insertion of Infusion Device into Spinal Canal, Percutaneous Approach (ICD-10-PCS; 2019-01-12)
DX: O98.42 Viral hepatitis complicating childbirth (principal); Z37.0 Single live birth; B19.20 Unspecified viral hepatitis C without hepatic coma; Z3A.39 39 weeks gestation of pregnancy; O69.81X0 Labor and delivery complicated by cord around neck, without compression, not applicable or unspecified; O99.334 Smoking (tobacco) complicating childbirth; F17.210 Nicotine dependence, cigarettes, uncomplicated
CPT/HCPCS: 59025; 59409; 85027; 86593; 86850; 86900; 86901; A9270-GY; J2590; J7120

== ENCOUNTER 2020-06-06 09:59 | Emergency (ER) | payer BC, MEDICAID ==
--- NOTE | 2020-06-06 10:04 | EDM.PDOC ---
ED HPI GENERAL MEDICAL PROBLEM - General Stated Complaint: RT JAW PAIN Time Seen by Provider: 06/06/20 10:00 Source of Information: Reports: Patient History Limitations: Reports: No Limitations - History of Present Illness INITIAL COMMENTS - FREE TEXT/NARRATIVE: HISTORY AND PHYSICAL: History of present illness: The patient is a 24-year-old female who presents emergency department with right jaw pain that started this morning upon. She had a similar incidence 6 years ago and had the tooth pulled, but today when she woke up it is hurting in the same area. She is rating her pain a 9.5 out of 10. She took Motrin at 7 AM this morning. He states he has because she is due to the pain. Patient denies any fever, chills, change in vision, syncope or near syncope. Denies any chest pain, back pain, shortness of breath or cough. Denies any abdominal pain, nausea, vomiting, diarrhea, constipation or dysuria. Has not noted any blood in urine or stool. Patient has been eating and drinking appropriately. Review of systems: As per history of present illness and below otherwise all systems reviewed and negative. Past medical history: As per history of present illness and as reviewed below otherwise noncontributory. Surgical history: As per history of present illness and as reviewed below otherwise noncontributory. Social history: See social history for further information Family history: As per history of present illness and as reviewed below otherwise noncontributory. Physical exam: General: Well developed and well nourished. Alert and orientated x 3. Nontoxic in appearance and in no acute distress. Vital signs are stable and have been reviewed by me. Nursing notes were reviewed. HEENT: Atraumatic, normocephalic, pupils equal and reactive bilaterally, negative for conjunctival pallor or scleral icterus, mucous membranes moist, TMs normal bilaterally, throat clear, neck supple, nontender, trachea midline. Tooth # 30 remnant below the gum line with brown and black surface. Noted erythema to the surrounding gum. Tender to touch. No drooling or trismus noted. No meningeal signs. No hot potato voice noted. Lungs: Clear to auscultation bilaterally. No wheezes, rales, or rhonchi. Chest nontender. Normal work of breathing, no accessory muscles used. Heart: S1S2, regular rate and rhythm without overt murmur, gallops, or rubs. No JVD. No peripheral edema Abdomen: Soft, nondistended, nontender. Normoactive bowel sounds. Negative for masses or costovertebral tenderness. Skin: Intact, warm, dry. No lesions or rashes noted. Hematologic: No petechiae or purpra. Mucosa appropriate color and normal nail bed color and refill. Extremities: Atraumatic, moves all extremities per self without difficulty or deficits, negative for cords or calf pain. Neurovascular unremarkable. Neuro: Awake, alert, oriented. Cranial nerves II through XII unremarkable. Cerebellum unremarkable. Motor and sensory unremarkable throughout. Exam nonfocal. Psychiatric: Mood and affect are appropriate. Normal thought process. Answering questions appropriately. Notes: *This patient was seen and evaluated during the 2019 SARS-CoV-2 novel coronavirus pandemic period. Community viral transmission is ongoing at time of this encounter and the emergency department is operating under pandemic response procedures. After examination and discussion the patient is agreeable to Augmentin 875/125 mg twice a day for 10 days and New Hope 1 every 6 hours for 1 day. Upon examination of her teeth, I found that she had a fragment tooth #30 with signs of infection. The patient states that the dentist she used 6 years ago might not have gotten the whole tooth out. She was advised of the need for definitive treatment with dentistry. The patient is agreeable to the plan. I have talked with the patient about today's findings, in addition to providing specific details for plan of care. Reassessment at the time of disposition demonstrates that the patient is in no acute distress. The patient is stable for discharge, counseling was provided and we discussed in great detail signs and symptoms that would prompt them to return to the Emergency Department. Medication, follow up and supportive care measures were reviewed and discussed. Voices understanding and is agreeable to plan of care. Denies any further questions or concerns at this time. Therapeutics: Augmentin & New Hope Prescription:Augmentin 875/125mg po BID for 10 days & New Hope 325-5mg 1 every 6 hours PRN pain for 1 day. Impression: Dental Carries Plan: 1. You were evaluated today on an emergent basis. Your dental pain was evalua ari and found to a dental infection. There appears to be a remnant of a tooth on the right lower molar that is infected. I am giving you Augmentin, antibiotic, to take for the infection. I will give you 3 New Hope's, pain pill, to assist with the pain, however you can use a warm compress, Tylenol, Motrin as needed for pain. The definitive treatment with you to see a dentist for removal of that tooth. 2. You can alternate Tylenol and ibuprofen as needed for pain and fever management. 3. We encourage you to follow up with your primary care provider and/or recommended specialist in the next few days for re-evaluation and further care/management. 4. If your symptoms should worsen, new symptoms develop or any of the signs and symptoms we discussed should arise please return to the emergency room or call 911 (if needed). Definitive disposition and diagnosis as appropriate pending reevaluation and review of above. 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: Musculoskeletal History: Reports: None Neurological History: Reports: None Psychiatric History: Reports: None Endocrine/Metabolic History: Reports: None Hematologic History: Reports: None Immunologic History: Reports: None Oncologic (Cancer) History: Reports: None Dermatologic History: Reports: None - Infectious Disease History Infectious Disease History: Reports: Hepatitis C - Past Surgical History Head Surgeries/Procedures: Reports: None Musculoskeletal Surgical History: Reports: None Social & Family History - Family History Family Medical History: No Pertinent Family History - Caffeine Use Caffeine Use: Reports: Coffee, Soda ED ROS ENT - Review of Systems Review Of Systems: Comprehensive ROS is negative, except as noted in HPI. ED EXAM, ENT - Physical Exam Exam: See Below (See dictation) Course - Vital Signs Last Recorded V/S: Last Vital Signs Temp 98.1 F 06/06/20 10:11 Pulse 92 06/06/20 10:11 Resp 16 06/06/20 10:11 BP 103/71 06/06/20 10:11 Pulse Ox 97 06/06/20 10:11 - Orders/Labs/Meds Meds: Medications Discontinued Medications Generic Name Dose Route Start Last Admin Trade Name Juan PRN Reason Stop Dose Admin Hydrocodone Bitart/Acetaminophen 1 tab 06/06/20 10:21 06/06/20 10:29 Acetaminophen/Hydrocodone 325-5 Mg Tab PO 06/06/20 10:22 1 tab ONETIME ONE Administration Amoxicillin/Clavulanate Potassium 1 tab 06/06/20 10:22 06/06/20 10:28 Amoxicillin/Clavulanate K 875-125 Mg Tab PO 06/06/20 10:23 1 tab ONETIME ONE Administration Departure - Departure Time of Disposition: 10:31 Disposition: Home, Self-Care 01 Condition: Good Clinical Impression: Dental caries - Discharge Information *PRESCRIPTION DRUG MONITORING PROGRAM REVIEWED*: No *COPY OF PRESCRIPTION DRUG MONITORING REPORT IN PATIENT TORRIE: No Prescriptions: Amoxicillin/Potassium Clav [Augmentin 875-125 Tablet] 1 each PO BID 10 Days #20 tablet Acetaminophen/HYDROcodone [New Hope 325-5 MG] 1 tab PO Q6H 1 Days #3 tablet Referrals: PCP,None [Primary Care Provider] - Additional Instructions: The following information is given to patients seen in the emergency department who are being discharged to home. This information is to outline your options for follow-up care. We provide all patients seen in our emergency department with a follow-up referral. The need for follow-up, as well as the timing and circumstances, are variable depending upon the specifics of your emergency department visit. If you don't have a primary care physician on staff, we will provide you with a referral. We always advise you to contact your personal physician following an emergency department visit to inform them of the circumstance of the visit and for follow-up with them and/or the need for any referrals to a consulting specialist. The emergency department will also refer you to a specialist when appropriate. This referral assures that you have the opportunity for follow-up care with a specialist. All of these measure are taken in an effort to provide you with optimal care, which includes your follow-up. Under all circumstances we always encourage you to contact your private physician who remains a resource for coordinating your care. When calling for follow-up care, please make the office aware that this follow-up is from your recent emergency room visit. If for any reason you are refused follow-up, please contact the [facility] Emergency Department at and asked to speak to the emergency department charge nurse. [facility] [address] [place] [id number] [facility] [address] [place] [id number] Plan: 1. You were evaluated today on an emergent basis. Your dental pain was evaluated and found to a dental infection. There appears to be a remnant of a tooth on the right lower molar that is infected. I am giving you Augmentin, antibiotic, to take for the infection. I will give you 3 New Hope's, pain pill, to assist with the pain, however you can use a warm compress, Tylenol, Motrin as needed for pain. The definitive treatment with you to see a dentist for removal of that tooth. 2. You can alternate Tylenol and ibuprofen as needed for pain and fever management. 3. We encourage you to follow up with your primary care provider and/or recommended specialist in the next few days for re-evaluation and further care/management. 4. If your symptoms should worsen, new symptoms develop or any of the signs and symptoms we discussed should arise please return to the emergency room or call 911 (if needed). Sepsis Event Note (ED) - Focused Exam Vital Signs: Vital Signs Temp Pulse Resp BP Pulse Ox 06/06/20 10:11 98.1 F 92 16 103/71 97
[2020-06-06] MEDS ORDERED: Acetaminophen/HYDROcodone 325-5 MG Tab PO ONE (10:21)
[2020-06-06] MEDS ORDERED: Amoxicillin/Clavulanate K 875-125 MG Tab PO ONE (10:22)
== END 2020-06-06 10:40 | disposition home or self-care (01) ==
LOC: MW.ED 09:59
DX: K02.9 Dental caries, unspecified (principal)
CPT/HCPCS: 99283; A9270

== ENCOUNTER 2020-08-04 11:45 | Emergency (ER) | payer MEDICAID ==
--- NOTE | 2020-08-04 12:22 | PCM.EKG ---
#1 Interpretation EKG Date: 08/04/20 Time: 12:15 Rhythm: NSR Rate (Beats/Min): 74 [place]: Normal ST-T: Normal
--- NOTE | 2020-08-04 12:34 | EDM.PDOC ---
ED HPI GENERAL MEDICAL PROBLEM - General Chief Complaint: General Stated Complaint: CHEST PAINS Time Seen by Provider: 08/04/20 11:46 Source of Information: Reports: Patient History Limitations: Reports: No Limitations - History of Present Illness INITIAL COMMENTS - FREE TEXT/NARRATIVE: HISTORY AND PHYSICAL: History of present illness: Patient is a 24-year-old female who presents to the ED today with concern of intermittent chest pain over the past 3 days. Patient describes as a pressure sensation that is nonexertional and states that it randomly occurs every 15 to 30 minutes and last just a few seconds. Patient states that she has had these chest pain sensations over the course of the past 1 year but states that they occurred randomly every several weeks and was concerned because she has it off and on for 3 days now. Patient states that she tried to call her primary care provider this morning to get an appointment in the clinic and they instructed her to come to the emergency room for further evaluation. Patient states that she does have a family history of mitral valve prolapse and states that she has multiple aunts and uncles who have this but her mother and father do not have this. Patient states that she has never been diagnosed with mitral valve prolapse or had any health history. Patient denies any fam hx of CAD or sudden cardiac . Patient states that she does smoke 1/2 pack of cigarettes a day and has done this for 10 years but denies any other substance use. Patient is not currently having chest pain. Patient denies fever, chills, shortness of breath, or cough. Denies headache, neck stiff ness, change in vision, syncope, or near syncope. Denies nausea, vomiting, abdominal pain, diarrhea, constipation, or dysuria. Has not noted any blood in urine or stool. Patient has been eating and drinking appropriately. Review of systems: As per history of present illness and below otherwise all systems reviewed and negative. Past medical history: As per history of present illness and as reviewed below otherwise noncontributory. Surgical history: As per history of present illness and as reviewed below otherwise noncontributory. Social history: See social history for further information Family history: As per history of present illness and as reviewed below otherwise noncontributory. Physical exam: General: Patient is alert, oriented, and in no acute distress. Patient sitting comfortably on exam table. Vitals stable and reviewed by me. HEENT: Atraumatic, normocephalic, pupils equal and reactive bilaterally, negative for conjunctival pallor or scleral icterus, mucous membranes moist, TMs normal bilaterally, throat clear, neck supple, nontender, trachea midline. No drooling or trismus noted. No meningeal signs. No hot potato voice noted. Lungs: Clear to auscultation, breath sounds equal bilaterally, chest nontender. Heart: S1S2, regular rate and rhythm without overt murmur Abdomen: Soft, nondistended, nontender. Negative for masses or hepatosplenomegaly. Negative for costovertebral tenderness. Pelvis: Stable nontender. Genitourinary: Deferred. Rectal: Deferred. Skin: Intact, warm, dry. No lesions or rashes noted. Extremities: Atraumatic, negative for cords or calf pain. Neurovascular unremarkable. Neuro: Awake, alert, oriented. Cranial nerves II through XII unremarkable. Cerebellum unremarkable. Motor and sensory unremarkable throughout. Exam nonfocal. Notes: Patient is a 24-year-old female who presents emergency room today with concern of chest pain x3 days that has been intermittent and coming and going that is nonexertional. Patient has been having the same chest pain off and on for the past 1 year but as it has been more consistent over the past 3 days, came to the emergency room for further evaluation. Upon arrival to the ED, patient is vitally stable and well-appearing on exam. Will perform cardiac evaluation at this time and reassess patient. HEART score 1--low risk See Dr. Ware's dictation for specific EKG interpretation. Otherwise, no STEMI with normal sinus rhythm with a rate of 74bmp. CBC unremarkable. CMP does show an elevation of AST at 71 and ALT at 151, otherwise CMP is unremarkable. Troponin negative,. hCG is negative. Chest x- ray shows no acute cardiopulmonary findings. Upon reevaluation of patient, she remains vitally stable and chest pain-free does not have any occurrences of her chest pain. Strict return precautions thoroughly discussed with patient. Signs and symptoms that were prompt return to the ED thoroughly discussed with patient. Discussed importance for follow-up with a primary care provider and for further evaluation of her liver function testing. Voices understanding and is agreeable to plan of care. Denies any further questions or concerns at this time. Diagnostics: CBC, CMP, Hcg, Lipase, CXR, Trop, EKG Therapeutics: None Prescription: None Impression: Atypical chest pain Transaminitis Plan: 1. You can alternate ibuprofen and Tylenol as directed for pain and discomfort. 2. Follow-up with a primary care provider as discussed. Return to the ED as needed and as discussed. Definitive disposition and diagnosis as appropriate pending reevaluation and review of above. heart Pain Score (Numeric/FACES): 6 - Related Data Allergies Allergy/AdvReac Type Severity Reaction Status Date / Time No Known Allergies Allergy Verified 08/04/20 13:00 Home Meds: Home Meds . 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: Musculoskeletal History: Reports: None Neurological History: Reports: None Psychiatric History: Reports: None Endocrine/Metabolic History: Reports: None Hematologic History: Reports: None Immunologic History: Reports: None Oncologic (Cancer) History: Reports: None Dermatologic History: Reports: None - Infectious Disease History Infectious Disease History: Reports: Hepatitis C - Past Surgical History Head Surgeries/Procedures: Reports: None Musculoskeletal Surgical History: Reports: None Social & Family History - Family History Family Medical History: No Pertinent Family History - Caffeine Use Caffeine Use: Reports: Coffee, Soda ED ROS GENERAL - Review of Systems Review Of Systems: Comprehensive ROS is negative, except as noted in HPI. ED EXAM, GENERAL - Physical Exam Exam: See Below (see dictation) Course - Vital Signs Last Recorded V/S: Last Vital Signs Temp 96.2 F L 08/04/20 12:12 Pulse 82 08/04/20 12:12 Resp 18 08/04/20 12:12 BP 99/63 08/04/20 12:12 Pulse Ox 99 08/04/20 12:12 - Orders/Labs/Meds Orders: Active Orders 24 hr Category Date Time Status EKG Documentation Completion [RC] STAT Care 08/04/20 11:47 Active Labs: Laboratory Tests 08/04/20 08/04/20 08/04/20 Range/Units 12:35 12:35 12:35 WBC 5.96 (4.0-11.0) K/uL RBC 4.66 (4.30-5.90) M/uL Hgb 14.2 (12.0-16.0) g/dL Hct 41.8 (36.0-46.0) % MCV 89.7 (80.0-98.0) fL MCH 30.5 (27.0-32.0) pg MCHC 34.0 (31.0-37.0) g/dL RDW Std Deviation 41.4 (28.0-62.0) fl RDW Coeff of [place] 13 (11.0-15.0) % Plt Count 204 (150-400) K/uL MPV 9.60 (7.40-12.00) fL Neut % (Auto) 53.5 (48.0-80.0) % Lymph % (Auto) 33.4 (16.0-40.0) % [place] % (Auto) 10.4 (0.0-15.0) % Eos % (Auto) 2.2 (0.0-7.0) % Baso % (Auto) 0.5 (0.0-1.5) % Neut # (Auto) 3.2 (1.4-5.7) K/uL Lymph # (Auto) 2.0 (0.6-2.4) K/uL [place] # (Auto) 0.6 (0.0-0.8) K/uL Eos # (Auto) 0.1 (0.0-0.7) K/uL Baso # (Auto) 0.0 (0.0-0.1) K/uL Nucleated RBC % 0.0 /100WBC Nucleated RBCs # 0 K/uL Sodium 139 (136-145) mmol/L Potassium 4.3 (3.5-5.1) mmol/L Chloride 102 (98-107) mmol/L Carbon Dioxide 26.8 (21.0-32.0) mmol/L BUN 7 (7.0-18.0) mg/dL Creatinine 0.7 (0.6-1.0) mg/dL Est Cr Clr Drug Dosing TNP Estimated GFR (MDRD) > 60.0 ml/min Glucose 80 (74-106) mg/dL Calcium 9.3 (8.5-10.1) mg/dL Total Bilirubin 0.6 (0.2-1.0) mg/dL AST 71 H (15-37) IU/L ALT 151 H (14-63) IU/L Alkaline Phosphatase 65 (46-116) U/L Troponin I < 0.050 (0.000-0.056) ng/mL Total Protein 7.8 (6.4-8.2) g/dL Albumin 4.0 (3.4-5.0) g/dL Globulin 3.8 (2.6-4.0) g/dL Albumin/Globulin Ratio 1.1 (0.9-1.6) Lipase 62 L (73-393) U/L HCG, Qual NEGATIVE (NEG) Departure - Departure Time of Disposition: 13:17 Disposition: Home, Self-Care 01 Clinical Impression: Atypical chest pain, Transaminitis - Discharge Information Instructions: Nonspecific Chest Pain, Adult, [id number] Referrals: PCP,None [Primary Care Provider] - Forms: ED Department Discharge Additional Instructions: The following information is given to patients seen in the emergency department who are being discharged to home. This information is to outline your options for follow-up care. We provide all patients seen in our emergency department with a follow-up referral. The need for follow-up, as well as the timing and circumstances, are variable depending upon the specifics of your emergency department visit. If you don't have a primary care physician on staff, we will provide you with a referral. We always advise you to contact your personal physician following an emergency department visit to inform them of the circumstance of the visit and for follow-up with them and/or the need for any referrals to a consulting specialist. The emergency department will also refer you to a specialist when appropriate. This referral assures that you have the opportunity for follow-up care with a specialist. All of these measure are taken in an effort to provide you with optimal care, which includes your follow-up. Under all circumstances we always encourage you to contact your private physician who remains a resource for coordinating your care. When calling for follow-up care, please make the office aware that this follow-up is from your recent emergency room visit. If for any reason you are refused follow-up, please contact the [facility] Emergency Department at and asked to speak to the emergency department charge nurse. [facility] [address] [place] [id number] [facility] [address] [place] [id number] 1. You can alternate ibuprofen and Tylenol as directed for pain and discomfort. 2. Follow-up with a primary care provider as discussed. Return to the ED as needed and as discussed. Sepsis Event Note (ED) - Focused Exam Vital Signs: Vital Signs Temp Pulse Resp BP Pulse Ox 08/04/20 12:12 96.2 F L 82 18 99/63 99 - My Orders Last 24 Hours: My Active Orders 08/04/20 11:47 EKG Documentation Completion [RC] STAT - Assessment/Plan Last 24 Hours: My Active Orders 08/04/20 11:47 EKG Documentation Completion [RC] STAT
[2020-08-04 13:12] LABS: BLOOD UREA NITROGEN,BUN 7 mg/dL (7.0-18.0); CARBON DIOXIDE,CO2 26.8 mmol/L (21.0-32.0); CHLORIDE,CL 102 mmol/L (98-107); GLUCOSE RANDOM 80 mg/dL (74-106); LIPASE 62 U/L (73-393); POTASSIUM,K 4.3 mmol/L (3.5-5.1); SODIUM,NA 139 mmol/L (136-145)
--- NOTE | 2020-08-04 13:15 | CR ---
Indication: Chest pain Technique: Chest 1 view Comparison: None Findings/Impression: Cardiovascular and mediastinum: Heart size and vasculature are normal in caliber and appearance. Mediastinum is within normal limits. Lungs and pleural space: Lungs are clear. No sign of infiltrate or mass. No sign of pleural effusion. No pneumothorax. Bones and soft tissues: No significant findings. Dictated by Ирина Landis MD @ 08/04/2020 1:14:[address] Ирина Landis @ Aug 04 2020 1:14PM
== END 2020-08-04 13:41 | disposition home or self-care (01) ==
LOC: MW.ED 11:45
DX: R07.89 Other chest pain (principal); R74.01 Elevation of levels of liver transaminase levels
CPT/HCPCS: 36415; 71045; 71045-26; 80053; 83690; 84484; 84703; 85025; 93005; 99285-25

== ENCOUNTER 2020-09-12 14:07 | Emergency (ER) | payer MEDICAID ==
[2020-09-12] MEDS ORDERED: Benzocaine 20% Topical Spray UD MUCMEM ONE (15:05)
[2020-09-12] MEDS ORDERED: Lidocaine 2% Viscous Solution 15 ML Cup PO ONE (15:05)
--- NOTE | 2020-09-12 15:12 | EDM.PDOC ---
ED HPI GENERAL MEDICAL PROBLEM - General Chief Complaint: General Time Seen by Provider: 09/12/20 14:09 Source of Information: Reports: Patient History Limitations: Reports: No Limitations - History of Present Illness INITIAL COMMENTS - FREE TEXT/NARRATIVE: HISTORY AND PHYSICAL: History of present illness: Patient is a 24-year-old female who presents emergency room today with concern of dental infection x2 days. Patient states that she has been able to eat and drink but does have pain with chewing on the affected tooth. Patient states that she does have an appointment at the end of September with her dentist. Patient denies any other symptoms or concerns. Patient denies fever, chills, chest pain, shortness of breath, or cough. Denies headache, neck stiff ness, change in vision, syncope, or near syncope. Denies nausea, vomiting, abdominal pain, diarrhea, constipation, or dysuria. Has not noted any blood in urine or stool. Patient has been eating and drinking appropriately. Review of systems: As per history of present illness and below otherwise all systems reviewed and negative. Past medical history: As per history of present illness and as reviewed below otherwise noncontributory. Surgical history: As per history of present illness and as reviewed below otherwise noncontributory. Social history: See social history for further information Family history: As per history of present illness and as reviewed below otherwise noncontributory. Physical exam: General: Patient is alert, oriented, and in no acute distress. Patient sitting comfortably on exam table. Vitals stable and reviewed by me. HEENT: Tooth #20 is eroded to the gumline with surrounding erythema of the gum without drainable abscess at this time. Pain to palpation of this tooth. Otherwise, atraumatic, normocephalic, pupils equal and reactive bilaterally, negative for conjunctival pallor or scleral icterus, mucous membranes moist, TMs normal bilaterally, throat clear, neck supple, nontender, trachea midline. No drooling or trismus noted. No meningeal signs. No hot potato voice noted. Lungs: Clear to auscultation, breath sounds equal bilaterally, chest nontender. Heart: S1S2, regular rate and rhythm without overt murmur Abdomen: Soft, nondistended, nontender. Negative for masses or hepatosplenomegaly. Negative for costovertebral tenderness. Pelvis: Stable nontender. Genitourinary: Deferred. Rectal: Deferred. Skin: Intact, warm, dry. No lesions or rashes noted. Extremities: Atraumatic, negative for cords or calf pain. Neurovascular unremarkable. Neuro: Awake, alert, oriented. Cranial nerves II through XII unremarkable. Cerebellum unremarkable. Motor and sensory unremarkable throughout. Exam nonfocal. Notes: Signs and symptoms that were prompt return to the ED thoroughly discussed with patient. Discussed importance for follow-up with a dentist. Voices understanding and is agreeable to plan of care. Denies any further questions or concerns at this time. Diagnostics: None Therapeutics: Dental balls Prescription: Augmentin Impression: Dental infection Plan: 1. Please take medication as prescribed. 2. Tylenol and/or ibuprofen as directed and as needed for pain management. 3. "Tooth Balls" have been given to you; apply along the gumline every 2-3 hours as needed. Do not swallow these; external use only. 4. Follow-up with a dentist for definitive care. Return to the ED as needed and as discussed. Definitive disposition and diagnosis as appropriate pending reevaluation and review of above. 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: Musculoskeletal History: Reports: None Neurological History: Reports: None Psychiatric History: Reports: None Endocrine/Metabolic History: Reports: None Hematologic History: Reports: None Immunologic History: Reports: None Oncologic (Cancer) History: Reports: None Dermatologic History: Reports: None - Infectious Disease History Infectious Disease History: Reports: Hepatitis C - Past Surgical History Head Surgeries/Procedures: Reports: None Musculoskeletal Surgical History: Reports: None Social & Family History - Family History Family Medical History: No Pertinent Family History - Tobacco Use Tobacco Use Status *Q: Never Tobacco User - Caffeine Use Caffeine Use: Reports: None - Recreational Drug Use Recreational Drug Use: No ED ROS GENERAL - Review of Systems Review Of Systems: Comprehensive ROS is negative, except as noted in HPI. ED EXAM, GENERAL - Physical Exam Exam: See Below (see dictation) Course - Vital Signs Last Recorded V/S: Last Vital Signs Temp 97.0 F 09/12/20 14:57 Pulse 88 09/12/20 14:57 Resp 17 09/12/20 14:57 BP 108/69 09/12/20 14:57 Pulse Ox 98 09/12/20 14:57 - Orders/Labs/Meds Meds: Medications Discontinued Medications Generic Name Dose Route Start Last Admin Trade Name Juan PRN Reason Stop Dose Admin Benzocaine 2 each 09/12/20 15:05 09/12/20 15:12 Benzocaine 20% Topical [place] Ud MUCMEM 09/12/20 15:06 2 each ONETIME ONE Administration Lidocaine HCl 15 ml 09/12/20 15:05 09/12/20 15:12 Lidocaine 2% Viscous Solution 15 Ml Cup PO 09/12/20 15:06 15 ml ONETIME ONE Administration Departure - Departure Time of Disposition: 15:13 Disposition: Home, Self-Care 01 Clinical Impression: Dental infection - Discharge Information Prescriptions: Amoxicillin/Potassium Clav [Augmentin 875-125 Tablet] 1 each PO BID 10 Days #20 tablet Referrals: PCP,None [Primary Care Provider] - Forms: ED Department Discharge Additional Instructions: The following information is given to patients seen in the emergency department who are being discharged to home. This information is to outline your options for follow-up care. We provide all patients seen in our emergency department with a follow-up referral. The need for follow-up, as well as the timing and circumstances, are variable depending upon the specifics of your emergency department visit. If you don't have a primary care physician on staff, we will provide you with a referral. We always advise you to contact your personal physician following an e mergency department visit to inform them of the circumstance of the visit and for follow-up with them and/or the need for any referrals to a consulting specialist. The emergency department will also refer you to a specialist when appropriate. This referral assures that you have the opportunity for follow-up care with a specialist. All of these measure are taken in an effort to provide you with op timal care, which includes your follow-up. Under all circumstances we always encourage you to contact your private physician who remains a resource for coordinating your care. When calling for follow-up care, please make the office aware that this follow-up is from your recent emergency room visit. If for any reason you are refused follow-up, please contact the [facility] Emergency Department at and asked to speak to the emergency department charge nurse. [facility] [address] [place] [address] [facility] [address] [place] [id number] 1. Please take medication as prescribed. 2. Tylenol and/or ibuprofen as directed and as needed for pain management. 3. "Tooth Balls" have been given to you; apply along the gumline every 2-3 hours as needed. Do not swallow these; external use only. 4. Follow-up with a dentist for definitive care. Return to the ED as needed and as discussed. Sepsis Event Note (ED) - Evaluation Sepsis Screening Result: No Definite Risk - Focused Exam Vital Signs: Vital Signs Temp Pulse Resp BP Pulse Ox 09/12/20 14:57 97.0 F 88 17 108/69 98
== END 2020-09-12 15:19 | disposition home or self-care (01) ==
LOC: MW.ED 14:07
DX: K04.7 Periapical abscess without sinus (principal)
CPT/HCPCS: 99282; A9270

== ENCOUNTER 2021-03-23 19:24 | Emergency (ER) | payer MEDICAID ==
[2021-03-23] MEDS ORDERED: Ketorolac 30 MG/ML SDV IM ONE (19:49)
== END 2021-03-23 20:09 | disposition home or self-care (01) ==
LOC: MW.ED 19:24
DX: H66.92 Otitis media, unspecified, left ear (principal); Z72.0 Tobacco use
CPT/HCPCS: 96372; 99283; J1885

== ENCOUNTER 2021-03-25 12:32 | Emergency (ER) | payer MEDICAID | END 2021-03-25 12:54 | disposition home or self-care (01) | LOC: MW.ED 12:32 | DX: H66.92 Otitis media, unspecified, left ear (principal); Z72.0 Tobacco use | CPT/HCPCS: 99282 ==

== ENCOUNTER 2022-06-04 09:19 | Emergency (ER) | payer BC, MEDICAID ==
[2022-06-04] MEDS ORDERED: Dexamethasone 10 MG/ML SDV IM STA (09:35)
[2022-06-04] MEDS ORDERED: Alum Hydro/Mag Hydro/Simeth XS 15 ML, Lidocaine 2% 5 ML PO ONE ×2 (09:35)
== END 2022-06-04 09:51 | disposition home or self-care (01) ==
LOC: MW.ED 09:19
DX: J02.9 Acute pharyngitis, unspecified (principal)
CPT/HCPCS: 87651; 96372; 99282; A9270; J1100; 99283

== ENCOUNTER 2022-11-20 04:29 | Emergency (ER) | payer BC, MEDICAID ==
[2022-11-20] MEDS ORDERED: Acetaminophen 325 MG Tab PO ONE (04:53)
[2022-11-20] MEDS ORDERED: Amoxicillin 500 MG Cap PO ONE (04:53)
[2022-11-20] MEDS ORDERED: Lidocaine 2% Viscous Solution 15 ML UD PO ONE (04:53)
== END 2022-11-20 05:30 | disposition home or self-care (01) ==
LOC: MW.ED 04:29
DX: K08.89 Other specified disorders of teeth and supporting structures (principal)
CPT/HCPCS: 99282; A9270; 99283

== ENCOUNTER 2023-02-13 16:51 | Emergency (ER) | payer MEDICAID ==
[2023-02-13] MEDS ORDERED: Albuterol/Ipratropium 3.0-0.5 MG/3 ML Neb Soln NEB STA (17:02)
[2023-02-13] MEDS ORDERED: Benzonatate 100 MG Cap PO STA (17:13)
[2023-02-13 17:47] LABS: CORONAVIRUS COVID-19 NAA NEGATIVE (NEGATIVE); INFLUENZA A NAA NEGATIVE (NEGATIVE); INFLUENZA B NAA NEGATIVE (NEGATIVE); RESPIRATORY SYNCYTIAL VIR NAA NEGATIVE (NEGATIVE)
[2023-02-13] MEDS ORDERED: Ketorolac 10 MG Tab PO STA (18:52)
[2023-02-13] MEDS ORDERED: Amoxicillin/Clavulanate K 875-125 MG Tab PO STA (18:52)
== END 2023-02-13 19:03 | disposition home or self-care (01) ==
LOC: MW.ED 16:51
DX: J06.9 Acute upper respiratory infection, unspecified (principal)
CPT/HCPCS: 0241U; 71046; 99284; A9270; J7620-GY